=== PATIENT | male | born 1935 | race Hispanic/Latino ===

== ENCOUNTER 2017-11-19 06:23 | Day surgery (SDC) | payer OTHER ==
[~2017-11-19] VITALS: Ht 165.1 cm; Wt 70.0 kg
[~2017-11-19 06:23] MED LIST: ASPI-555 PO; CLOP75TA32 PO; FURO20TA4 PO; GLIM1TAB2 PO; LAMO25TA72 PO; METO-391 PO; PRAV20TA4 PO; SACU1TAB PO; TAMS0.4C32 PO; TRAM50TA4 PO; [UNRECOGNIZED DRUG - OTHER]
[2017-11-19] MEDS ORDERED: SODIUM CHLORIDE 0.9% 1000ML 1,000 ML IV ONE (06:47)
[2017-11-19 06:54] VITALS: BP 122/66
[2017-11-19] MEDS ORDERED: PROPOFOL 10 MG/ML 20ML VIAL IV ONE ×2 (08:29)
[2017-11-19 08:39] VITALS: BP 96/47
== END 2017-11-19 09:11 ==
LOC: ENDO 06:23 → DAH 06:23 → ENDO 09:11
PROVIDERS: ATTEND Internal Medicine Gastroenterology
DX: K22.2 Esophageal obstruction (principal); Z79.82 Long term (current) use of aspirin; Z79.899 Other long term (current) drug therapy; I25.810 Atherosclerosis of coronary artery bypass graft(s) without angina pectoris; I10 Essential (primary) hypertension; E78.4 Other hyperlipidemia; Z87.891 Personal history of nicotine dependence; Z95.1 Presence of aortocoronary bypass graft; Z86.73 Personal history of transient ischemic attack (TIA), and cerebral infarction without residual deficits; E11.9 Type 2 diabetes mellitus without complications; Z79.84 Long term (current) use of oral hypoglycemic drugs; K21.9 Gastro-esophageal reflux disease without esophagitis; G43.909 Migraine, unspecified, not intractable, without status migrainosus; Z90.49 Acquired absence of other specified parts of digestive tract
CPT/HCPCS: 43248; 82948 ×2; 93005; A4606; J2704 ×2; J7030

== ENCOUNTER 2017-12-31 12:37 | Inpatient (IN) | payer OTHER ==
[2017-12-31] VITALS (8 sets, daily range): BP systolic 99–110; BP diastolic 59–74
[~2017-12-31] VITALS: Ht 167.6 cm; Wt 69.5 kg
[~2017-12-31 12:37] MED LIST changes: +AMIODARONE HCL 50 MG/ML 3 ML VIAL IV ONE
[2017-12-31 12:56] LABS: BASOPHILS % (AUTO) 0.5 % (0.0-5.0); EOSINOPHILS % (AUTO) 1.2 % (0.0-8.0); HEMATOCRIT 35.2 % (42-54); LYMPHOCYTES % (AUTO) 33.6 % (21.0-51.0); MEAN CORPUSCULAR HEMOGLOBIN 27.3 pg (27.0-33.0); MEAN CORPUSCULAR HGB CONC 32.5 g/dL (32.0-36.0); MEAN CORPUSCULAR VOLUME 83.9 fL (79-99); NEUTROPHILS % (AUTO) 54.7 % (40.0-77.0); PLATELET COUNT (AUTO) 289 K/uL (130-400); RED CELL DISTRIBUTION WIDTH 14.4 % (11.0-15.5); WHITE BLOOD COUNT (AUTO) 14.6 K/uL (4.8-10.8)
[2017-12-31] MEDS ORDERED: ASPIRIN 325 MG TABLET ONE (12:59)
[2017-12-31 13:08] LABS: CREATININE 1.7 mg/dL (0.5-1.5); POTASSIUM 3.6 mmol/L (3.5-5.1)
[2017-12-31 13:12] LABS: INR 1.02 (0.85-1.15); PARTIAL THROMBOPLASTIN TIME 25.6 SEC (26.3-35.5); PROTHROMBIN TIME 10.7 SEC (9.6-11.6)
[2017-12-31 13:22] LABS: ALBUMIN 3.8 g/dL (3.5-5.0); BILIRUBIN,TOTAL 0.3 mg/dL (0.2-1.0); CREATINE KINASE MB 0.8 ng/mL (0.5-3.6); TOTAL PROTEIN, SERUM 7.4 g/dL (6.0-8.3)
[2017-12-31] MEDS ORDERED: NITROGLYCERIN 0.4 MG SL TAB SL ONE (13:37)
[2017-12-31] MEDS ORDERED: NITROGLYCERIN 50 MG/D5% WATER 1 BOT ONE (13:38)
[2017-12-31] MEDS ORDERED: SODIUM CHLORIDE 0.9% 1000ML 1,000 ML IV ONE (13:38)
[2017-12-31] MEDS ORDERED: AMIODARONE HCL 50 MG/ML 3 ML VIAL ONE (13:51)
[2017-12-31] MEDS ORDERED: HEPARIN SODIUM 5000UNIT/ML 1ML VIAL ONE (13:54)
[2017-12-31] MEDS ORDERED: AMIODARONE HCL 900 MG in DEXTROSE 5%-WATER 500 ML IV SCH (14:00)
[2017-12-31] MEDS ORDERED: ATROPINE SULFATE 0.1 MG/ML 10 ML SYG IVP ONE ×2 (14:02→17:31)
[2017-12-31] MEDS ORDERED: LIDOCAINE HCL 2% 20ML ONE (14:03)
[2017-12-31] MEDS ORDERED: IOPAMIDOL-370 100 ML VIAL IV ONE (14:03)
[2017-12-31] MEDS ORDERED: HEPARIN SODIUM 1000UNIT/ML 10ML VIAL ONE (14:03)
[2017-12-31] MEDS ORDERED: BIVALIRUDIN 250 MG/VIAL IV ONE (14:03)
[2017-12-31] MEDS ORDERED: DOPAMINE HCL 400 MG/D5%-WATER 250 ML IV ONE (14:03)
[2017-12-31] MEDS ORDERED: ISOVUE-370 50ML VIAL IV ONE (14:03)
[2017-12-31] MEDS ORDERED: PHENYLEPHRINE HCL 10 MG/ML 1ML VIAL IV ONE ×2 (14:20→14:27)
[2017-12-31] MEDS ORDERED: FENTANYL CITRATE PF 50 MCG/1 ML 2ML VIAL ONE (14:51)
[2017-12-31] MEDS ORDERED: EPTIFIBATIDE 75MG/100ML BOTTLE 0 ML IV ONE (15:05)
[2017-12-31] MEDS ORDERED: EPTIFIBATIDE 2 MG/ML 10 ML VIAL IVP ONE ×2 (15:05)
[2017-12-31] MEDS ORDERED: ADENOSINE 3 MG/ML 2ML VIAL IV ONE (15:11)
[2017-12-31] MEDS ORDERED: DEXTROSE 50%-WATER 50 ML DISP.SYRIN IV PRN (15:45)
[2017-12-31] MEDS ORDERED: GLUCAGON 1MG KIT 1 MG ML IM PRN (15:45)
[2017-12-31] MEDS ORDERED: TICAGRELOR 90 MG TABLET ONE (15:47)
[2017-12-31] MEDS ORDERED: PHENYLEPHRINE HCL 50 MG in SODIUM CHLORIDE 0.9% 250 ML IV SCH ×2 (16:00→16:30)
[2017-12-31 17:12] LABS: TROPONIN I 22.96 ng/mL (0.00-0.06)
[2017-12-31] MEDS: INSULIN HUMULIN R 100 UNIT/ML 3ML SQ SCH ×2 (17:16→21:00)
[2017-12-31] MEDS: TICAGRELOR 90 MG TABLET PO SCH (21:45)
[2018-01-01] VITALS (26 sets, daily range): BP systolic 91–132; BP diastolic 49–80
[2018-01-01] MEDS ORDERED: POTASSIUM CHLORIDE 10% ELIXIR 20 MEQ/15 ML UDCUP PO PRN (00:45)
[2018-01-01] MEDS ORDERED: POTASSIUM CHLORIDE 20MEQ/100ML 100 ML IV PRN (00:45)
[2018-01-01] MEDS ORDERED: LACTULOSE 20 GM/30 ML UDCUP PO PRN (00:45)
[2018-01-01 03:36] LABS: HEMATOCRIT 36.7 % (42-54); MEAN CORPUSCULAR HGB CONC 33.3 g/dL (32.0-36.0); MEAN CORPUSCULAR VOLUME 84.3 fL (79-99); PLATELET COUNT (AUTO) 272 K/uL (130-400); RED BLOOD CELL COUNT(AUTO) 4.36 MIL/uL (4.50-6.20); WHITE BLOOD COUNT (AUTO) 18.3 K/uL (4.8-10.8)
[2018-01-01 03:47] LABS: CREATININE 1.6 mg/dL (0.5-1.5)
[2018-01-01] MEDS: INSULIN HUMULIN R 100 UNIT/ML 3ML SQ SCH ×4 (07:30→21:00)
[2018-01-01] MEDS: ASPIRIN 81MG TAB.CHEW PO SCH (08:10)
[2018-01-01] MEDS: TICAGRELOR 90 MG TABLET PO SCH ×2 (08:10→20:50)
[2018-01-01] MEDS: FAMOTIDINE 20MG TAB 20 MG TAB PO SCH (08:10)
[2018-01-01] MEDS ORDERED: NON-FORMULARY MEDICATION 1 EACH (Glimepiride 1 MG) PO SCH (10:09)
[2018-01-01] MEDS: METOPROLOL TARTRATE 25 MG TAB PO SCH ×2 (10:12→21:00)
[2018-01-01] MEDS: FUROSEMIDE 20 MG TABLET PO SCH (12:01)
[2018-01-01] MEDS ORDERED: GLIMEPIRIDE 2 MG TABLET PO SCH (13:24)
[2018-01-01] MEDS: GLIMEPIRIDE 2 MG TABLET PO SCH (13:50)
[2018-01-01] MEDS ORDERED: FUROSEMIDE 10 MG/ML 4ML VIAL IV ONE (19:30)
[2018-01-01] MEDS ORDERED: SODIUM POLYSTYRENE SULFONATE 15 GM/60 ML ML RC SCH (20:15)
[2018-01-01] MEDS: TAMSULOSIN HCL 0.4 MG CAP.ER.24H PO SCH (20:50)
[2018-01-01] MEDS: ATORVASTATIN CALCIUM 10 MG TABLET PO SCH (20:50)
[2018-01-01] MEDS ORDERED: ATORVASTATIN CALCIUM 20 MG TABLET PO SCH (21:00)
[2018-01-02] VITALS (27 sets, daily range): BP systolic 81–105; BP diastolic 45–76
[2018-01-02 03:57] LABS: HEMATOCRIT 33.7 % (42-54); MEAN CORPUSCULAR HEMOGLOBIN 27.5 pg (27.0-33.0); MEAN CORPUSCULAR HGB CONC 33.3 g/dL (32.0-36.0); MEAN CORPUSCULAR VOLUME 82.4 fL (79-99); PLATELET COUNT (AUTO) 225 K/uL (130-400); RED BLOOD CELL COUNT(AUTO) 4.09 MIL/uL (4.50-6.20); RED CELL DISTRIBUTION WIDTH 15.2 % (11.0-15.5); WHITE BLOOD COUNT (AUTO) 15.6 K/uL (4.8-10.8)
[2018-01-02 04:09] LABS: CREATININE 1.6 mg/dL (0.5-1.5); POTASSIUM 3.3 mmol/L (3.5-5.1)
[2018-01-02] MEDS: INSULIN HUMULIN R 100 UNIT/ML 3ML SQ SCH ×4 (06:05→20:05)
[2018-01-02] MEDS: POTASSIUM CHLORIDE 20 MEQ ERTAB PO PRN ×2 (06:26→21:12)
[2018-01-02] MEDS: ASPIRIN 81MG TAB.CHEW PO SCH (08:23)
[2018-01-02] MEDS: FUROSEMIDE 20 MG TABLET PO SCH (08:23)
[2018-01-02] MEDS: FAMOTIDINE 20MG TAB 20 MG TAB PO SCH (08:23)
[2018-01-02] MEDS: METOPROLOL TARTRATE 25 MG TAB PO SCH ×2 (08:24→20:01)
[2018-01-02] MEDS: GLIMEPIRIDE 2 MG TABLET PO SCH (08:24)
[2018-01-02] MEDS: TICAGRELOR 90 MG TABLET PO SCH ×2 (08:34→20:01)
[2018-01-02] MEDS: VALSARTAN PO SCH ×2 (08:35→20:01)
[2018-01-02] MEDS: SACUBITRIL PO SCH ×2 (08:35→20:01)
[2018-01-02] MEDS: TAMSULOSIN HCL 0.4 MG CAP.ER.24H PO SCH (20:01)
[2018-01-02] MEDS: ATORVASTATIN CALCIUM 10 MG TABLET PO SCH (20:01)
[2018-01-02] MEDS ORDERED: FUROSEMIDE 10 MG/ML 4ML VIAL IV SCH (21:00)
[2018-01-02] MEDS: DOBUTAMINE 250MG/D5 250ML 250 ML IV SCH (21:10)
[2018-01-03] VITALS (27 sets, daily range): BP systolic 65–112; BP diastolic 34–67
[2018-01-03 03:48] LABS: MEAN CORPUSCULAR HEMOGLOBIN 28.3 pg (27.0-33.0); MEAN CORPUSCULAR HGB CONC 34.2 g/dL (32.0-36.0); MEAN CORPUSCULAR VOLUME 82.8 fL (79-99); PLATELET COUNT (AUTO) 206 K/uL (130-400); RED BLOOD CELL COUNT(AUTO) 3.99 MIL/uL (4.50-6.20); RED CELL DISTRIBUTION WIDTH 15.2 % (11.0-15.5)
[2018-01-03 03:55] LABS: CREATININE 1.6 mg/dL (0.5-1.5); POTASSIUM 3.5 mmol/L (3.5-5.1)
[2018-01-03] MEDS: INSULIN HUMULIN R 100 UNIT/ML 3ML SQ SCH ×4 (05:25→20:18)
[2018-01-03] MEDS: POTASSIUM CHLORIDE 20 MEQ ERTAB PO PRN ×2 (05:26→20:21)
[2018-01-03] MEDS: FUROSEMIDE 20 MG TABLET PO SCH (08:41)
[2018-01-03] MEDS: FAMOTIDINE 20MG TAB 20 MG TAB PO SCH (08:41)
[2018-01-03] MEDS: ASPIRIN 81MG TAB.CHEW PO SCH (08:41)
[2018-01-03] MEDS: METOPROLOL TARTRATE 25 MG TAB PO SCH ×2 (08:42→20:18)
[2018-01-03] MEDS: GLIMEPIRIDE 2 MG TABLET PO SCH (08:42)
[2018-01-03] MEDS: VALSARTAN PO SCH ×2 (08:43→20:18)
[2018-01-03] MEDS: SACUBITRIL PO SCH ×2 (08:43→20:18)
[2018-01-03] MEDS: TICAGRELOR 90 MG TABLET PO SCH ×2 (08:46→20:18)
[2018-01-03] MEDS: FUROSEMIDE 10 MG/ML 4ML VIAL IV SCH (16:27)
[2018-01-03] MEDS: ATORVASTATIN CALCIUM 10 MG TABLET PO SCH (20:18)
[2018-01-03] MEDS: TAMSULOSIN HCL 0.4 MG CAP.ER.24H PO SCH (20:18)
[2018-01-04] VITALS (20 sets, daily range): BP systolic 78–129; BP diastolic 39–68
[2018-01-04] MEDS: DOBUTAMINE 250MG/D5 250ML 250 ML IV SCH (00:05)
[2018-01-04 03:09] LABS: MEAN CORPUSCULAR HEMOGLOBIN 27.5 pg (27.0-33.0); MEAN CORPUSCULAR HGB CONC 33.6 g/dL (32.0-36.0); MEAN CORPUSCULAR VOLUME 81.9 fL (79-99); NUCLEATED RED BLOOD CELLS 0.1 % (0.0-0.19); PLATELET COUNT (AUTO) 213 K/uL (130-400); RED BLOOD CELL COUNT(AUTO) 3.66 MIL/uL (4.50-6.20); RED CELL DISTRIBUTION WIDTH 14.8 % (11.0-15.5); WHITE BLOOD COUNT (AUTO) 12.1 K/uL (4.8-10.8)
[2018-01-04 03:16] LABS: CREATININE 1.6 mg/dL (0.5-1.5); MAGNESIUM 2.1 mg/dL (1.80-2.40); POTASSIUM 3.3 mmol/L (3.5-5.1)
[2018-01-04 03:25] LABS: B-TYPE NATRIURETIC PEPTIDE 1010 pg/mL (0-100)
[2018-01-04] MEDS: FUROSEMIDE 10 MG/ML 4ML VIAL IV SCH (03:32)
[2018-01-04] MEDS: POTASSIUM CHLORIDE 20 MEQ ERTAB PO PRN ×6 (03:33→19:42)
[2018-01-04] MEDS: INSULIN HUMULIN R 100 UNIT/ML 3ML SQ SCH ×4 (05:29→19:48)
[2018-01-04] MEDS ORDERED: AMIODARONE HCL 150 MG in DEXTROSE 5%-WATER 100 ML IV SCH (08:15)
[2018-01-04] MEDS ORDERED: AMIODARONE HCL 900 MG in DEXTROSE 5%-WATER 500 ML IV SCH (08:15)
[2018-01-04] MEDS: FUROSEMIDE 10 MG/ML 2ML VIAL IV SCH ×2 (08:30→19:46)
[2018-01-04] MEDS: FAMOTIDINE 20MG TAB 20 MG TAB PO SCH (08:42)
[2018-01-04] MEDS: METOPROLOL TARTRATE 25 MG TAB PO SCH ×2 (08:42→19:43)
[2018-01-04] MEDS: TICAGRELOR 90 MG TABLET PO SCH ×2 (08:42→19:43)
[2018-01-04] MEDS: GLIMEPIRIDE 2 MG TABLET PO SCH (08:42)
[2018-01-04] MEDS: SACUBITRIL PO SCH ×2 (08:43→19:46)
[2018-01-04] MEDS: VALSARTAN PO SCH ×2 (08:43→19:46)
[2018-01-04] MEDS: ASPIRIN 81MG TAB.CHEW PO SCH (08:43)
[2018-01-04] MEDS: POTASSIUM CHLORIDE 10 MEQ/TAB.SA PO SCH ×2 (09:00→19:47)
[2018-01-04 15:11] LABS: MAGNESIUM 2.3 mg/dL (1.80-2.40); POTASSIUM 3.7 mmol/L (3.5-5.1)
[2018-01-04] MEDS: TAMSULOSIN HCL 0.4 MG CAP.ER.24H PO SCH (19:42)
[2018-01-04] MEDS: ATORVASTATIN CALCIUM 10 MG TABLET PO SCH (19:43)
[2018-01-05] VITALS (10 sets, daily range): BP systolic 73–105; BP diastolic 43–69
[2018-01-05 04:03] LABS: CREATININE 1.7 mg/dL (0.5-1.5)
[2018-01-05] MEDS: INSULIN HUMULIN R 100 UNIT/ML 3ML SQ SCH ×4 (05:41→21:00)
[2018-01-05] MEDS: GLIMEPIRIDE 2 MG TABLET PO SCH (08:00)
[2018-01-05] MEDS: ASPIRIN 81MG TAB.CHEW PO SCH (09:40)
[2018-01-05] MEDS: FAMOTIDINE 20MG TAB 20 MG TAB PO SCH (09:40)
[2018-01-05] MEDS: AMIODARONE HCL 200 MG TABLET PO SCH (09:40)
[2018-01-05] MEDS: FUROSEMIDE 20 MG TABLET PO SCH ×2 (09:42→16:10)
[2018-01-05] MEDS: TICAGRELOR 90 MG TABLET PO SCH ×2 (09:42→20:44)
[2018-01-05] MEDS: POTASSIUM CHLORIDE 10 MEQ/TAB.SA PO SCH ×2 (09:42→20:44)
[2018-01-05] MEDS: LOSARTAN 50 MG TABLET PO SCH (09:42)
[2018-01-05] MEDS: CARVEDILOL 6.25 MG TABLET PO SCH ×2 (09:43→21:00)
[2018-01-05] MEDS: SACUBITRIL PO SCH ×2 (15:33→21:00)
[2018-01-05] MEDS: VALSARTAN PO SCH ×2 (15:33→21:00)
[2018-01-05] MEDS: ATORVASTATIN CALCIUM 10 MG TABLET PO SCH (20:44)
[2018-01-05] MEDS: TAMSULOSIN HCL 0.4 MG CAP.ER.24H PO SCH (20:44)
[2018-01-06 03:23] LABS: HEMATOCRIT 30.7 % (42-54); MEAN CORPUSCULAR HEMOGLOBIN 28.4 pg (27.0-33.0); MEAN CORPUSCULAR HGB CONC 34.5 g/dL (32.0-36.0); MEAN CORPUSCULAR VOLUME 82.2 fL (79-99); PLATELET COUNT (AUTO) 254 K/uL (130-400); RED BLOOD CELL COUNT(AUTO) 3.74 MIL/uL (4.50-6.20); RED CELL DISTRIBUTION WIDTH 14.9 % (11.0-15.5); WHITE BLOOD COUNT (AUTO) 12.2 K/uL (4.8-10.8)
[2018-01-06 03:34] VITALS: BP 80/50
[2018-01-06 03:38] LABS: CREATININE 1.8 mg/dL (0.5-1.5); POTASSIUM 3.9 mmol/L (3.5-5.1)
[2018-01-06] MEDS: INSULIN HUMULIN R 100 UNIT/ML 3ML SQ SCH ×2 (05:59→11:30)
[2018-01-06 07:00] VITALS: BP 91/56
[2018-01-06] MEDS: GLIMEPIRIDE 2 MG TABLET PO SCH (08:29)
[2018-01-06] MEDS ORDERED: FURO20TA6 PO (08:55)
[2018-01-06] MEDS ORDERED: CARV6.2579 PO (08:55)
[2018-01-06] MEDS: SACUBITRIL PO SCH (09:00)
[2018-01-06] MEDS: VALSARTAN PO SCH (09:00)
[2018-01-06] MEDS ORDERED: TICA90TA PO (09:12)
[2018-01-06] MEDS ORDERED: AMIO200T5 PO (09:24)
[2018-01-06] MEDS: FUROSEMIDE 20 MG TABLET PO SCH (10:21)
[2018-01-06] MEDS: ASPIRIN 81MG TAB.CHEW PO SCH (10:21)
[2018-01-06] MEDS: LOSARTAN 50 MG TABLET PO SCH (10:21)
[2018-01-06] MEDS: FAMOTIDINE 20MG TAB 20 MG TAB PO SCH (10:22)
[2018-01-06] MEDS: POTASSIUM CHLORIDE 10 MEQ/TAB.SA PO SCH (10:22)
[2018-01-06] MEDS: TICAGRELOR 90 MG TABLET PO SCH (10:22)
[2018-01-06] MEDS: CARVEDILOL 6.25 MG TABLET PO SCH (10:22)
[2018-01-06] MEDS: AMIODARONE HCL 200 MG TABLET PO SCH (10:23)
[2018-01-06 11:00] VITALS: BP 80/51
== END 2018-01-06 14:43 | disposition home or self-care (01) | DRG 270 ==
LOC: EDH 12:37 → 2BH 12:38 → 2CH 19:00 → 2AH 01-05 15:09
PROVIDERS: ADMIT Internal Medicine; ATTEND Internal Medicine
PROC: 02703DZ Dilation of Coronary Artery, One Artery with Intraluminal Device, Percutaneous Approach (ICD-10-PCS; principal; 2017-12-31)
PROC: B2111ZZ Fluoroscopy of Multiple Coronary Arteries using Low Osmolar Contrast (ICD-10-PCS; 2017-12-31)
PROC: B2131ZZ Fluoroscopy of Multiple Coronary Artery Bypass Grafts using Low Osmolar Contrast (ICD-10-PCS; 2017-12-31)
PROC: 06C Lower Veins, Extirpation (ICD-10-PCS; 2017-12-31)
PROC: 4A023N7 Measurement of Cardiac Sampling and Pressure, Left Heart, Percutaneous Approach (ICD-10-PCS; 2017-12-31)
PROC: 5A09357 Assistance with Respiratory Ventilation, Less than 24 Consecutive Hours, Continuous Positive Airway Pressure (ICD-10-PCS; 2018-01-01)
PROC: 5A09357 Assistance with Respiratory Ventilation, Less than 24 Consecutive Hours, Continuous Positive Airway Pressure (ICD-10-PCS; 2018-01-02)
PROC: 5A09357 Assistance with Respiratory Ventilation, Less than 24 Consecutive Hours, Continuous Positive Airway Pressure (ICD-10-PCS; 2018-01-03)
DX: I21.19 ST elevation (STEMI) myocardial infarction involving other coronary artery of inferior wall (principal); R57.0 Cardiogenic shock; I50.43 Acute on chronic combined systolic (congestive) and diastolic (congestive) heart failure; I47.2 Ventricular tachycardia; N18.3 Chronic kidney disease, stage 3 (moderate); I49.01 Ventricular fibrillation; I13.0 Hypertensive heart and chronic kidney disease with heart failure and stage 1 through stage 4 chronic kidney disease, or unspecified chronic kidney disease; I47.1 Supraventricular tachycardia; E11.22 Type 2 diabetes mellitus with diabetic chronic kidney disease; E78.5 Hyperlipidemia, unspecified; I25.10 Atherosclerotic heart disease of native coronary artery without angina pectoris; I25.5 Ischemic cardiomyopathy; K21.9 Gastro-esophageal reflux disease without esophagitis; N40.0 Benign prostatic hyperplasia without lower urinary tract symptoms; I25.2 Old myocardial infarction; Z79.82 Long term (current) use of aspirin; Z79.84 Long term (current) use of oral hypoglycemic drugs; Z79.899 Other long term (current) drug therapy; Z86.73 Personal history of transient ischemic attack (TIA), and cerebral infarction without residual deficits; Z87.891 Personal history of nicotine dependence; Z95.810 Presence of automatic (implantable) cardiac defibrillator
CPT/HCPCS: 36415; 71045; 80048; 80053; 80061; 82550; 82553; 82948; 83605; 83735; 83874; 83880; 84132; 84484; 85025; 85027; 85610; 85730; 92941; 93005; 93306; 93455; 94660; 97039; 99156; 99157; 99291; A4344; C1725; C1769; C1887; C1894; C9606; J0153; J0282; J0461; J0583; J1250; J1265; J1327; J1644; J1815; J1940; J2370; J3010; J3490; J7030; J7060; Q9967

== ENCOUNTER 2018-01-10 00:17 | Emergency (ER) | payer OTHER ==
[~2018-01-10 00:17] MED LIST changes: +AMIO200T5 PO; -AMIODARONE HCL 50 MG/ML 3 ML VIAL IV ONE; +CARV6.2579 PO; -CLOP75TA32 PO; -FURO20TA4 PO; +FURO20TA6 PO; -METO-391 PO; +TICA90TA PO
[2018-01-10 00:55] LABS: BASOPHILS % (AUTO) 1.4 % (0.0-5.0); HEMATOCRIT 30.1 % (42-54); LYMPHOCYTES % (AUTO) 27.6 % (21.0-51.0); MEAN CORPUSCULAR HEMOGLOBIN 27.9 pg (27.0-33.0); MONOCYTES % (AUTO) 9.3 % (3.0-13.0); NEUTROPHILS % (AUTO) 58.7 % (40.0-77.0); NUCLEATED RED BLOOD CELLS 0.1 % (0.0-0.19); PLATELET COUNT (AUTO) 343 K/uL (130-400); RED BLOOD CELL COUNT(AUTO) 3.67 MIL/uL (4.50-6.20); RED CELL DISTRIBUTION WIDTH 15.5 % (11.0-15.5); WHITE BLOOD COUNT (AUTO) 9.6 K/uL (4.8-10.8)
[2018-01-10 01:01] LABS: CREATININE 1.8 mg/dL (0.5-1.5); POTASSIUM 3.5 mmol/L (3.5-5.1)
[2018-01-10 01:05] LABS: INR 1.03 (0.85-1.15); PARTIAL THROMBOPLASTIN TIME 30.1 SEC (26.3-35.5); PROTHROMBIN TIME 10.8 SEC (9.6-11.6)
[2018-01-10 01:12] LABS: B-TYPE NATRIURETIC PEPTIDE 1290 pg/mL (0-100)
[2018-01-10 01:14] LABS: ALBUMIN 2.8 g/dL (3.5-5.0); BILIRUBIN,TOTAL 0.3 mg/dL (0.2-1.0); CREATINE KINASE MB 0.9 ng/mL (0.5-3.6); TOTAL PROTEIN, SERUM 6.9 g/dL (6.0-8.3)
[2018-01-10] MEDS ORDERED: FUROSEMIDE 10 MG/ML 4ML VIAL ONE (02:31)
== END 2018-01-10 05:45 | disposition home or self-care (01) ==
LOC: EDH 00:17
DX: I11.0 Hypertensive heart disease with heart failure (principal); I50.43 Acute on chronic combined systolic (congestive) and diastolic (congestive) heart failure; I21.9 Acute myocardial infarction, unspecified; I25.10 Atherosclerotic heart disease of native coronary artery without angina pectoris; E11.9 Type 2 diabetes mellitus without complications; E78.5 Hyperlipidemia, unspecified; Z86.73 Personal history of transient ischemic attack (TIA), and cerebral infarction without residual deficits
CPT/HCPCS: 36415; 71045; 80053; 82550; 82553; 83880; 84484 ×2; 85025; 85610; 85730; 93005 ×2; 96374; 99285; J1940

== ENCOUNTER 2018-05-01 10:06 | Inpatient (IN) | payer OTHER ==
[~2018-05-01] VITALS: Ht 167.6 cm; Wt 60.6 kg
[~2018-05-01 10:06] MED LIST changes: -AMIO200T5 PO; +ATOR20TA65 PO; -FURO20TA6 PO; +FURO40TA5 PO; +POTA-9 PO; -PRAV20TA4 PO; +SPIR25TA PO; -TRAM50TA4 PO; -[UNRECOGNIZED DRUG - OTHER]
[2018-05-01 10:27] LABS: BASOPHILS % (AUTO) 0.5 % (0.0-5.0); EOSINOPHILS % (AUTO) 0.6 % (0.0-8.0); HEMATOCRIT 41.6 % (42-54); LYMPHOCYTES % (AUTO) 35.8 % (21.0-51.0); MEAN CORPUSCULAR HEMOGLOBIN 28.6 pg (27.0-33.0); MEAN CORPUSCULAR HGB CONC 32.3 g/dL (32.0-36.0); MEAN CORPUSCULAR VOLUME 88.6 fL (79-99); MONOCYTES % (AUTO) 6.8 % (3.0-13.0); NEUTROPHILS % (AUTO) 56.3 % (40.0-77.0); PLATELET COUNT (AUTO) 269 K/uL (130-400); RED BLOOD CELL COUNT(AUTO) 4.69 MIL/uL (4.50-6.20); RED CELL DISTRIBUTION WIDTH 16.9 % (11.0-15.5); WHITE BLOOD COUNT (AUTO) 13.4 K/uL (4.8-10.8)
[2018-05-01] MEDS ORDERED: ASPIRIN 325 MG TABLET ONE (10:31)
[2018-05-01 10:36] LABS: CREATININE 1.7 mg/dL (0.5-1.5); POTASSIUM 3.9 mmol/L (3.5-5.1)
[2018-05-01 10:43] LABS: ALBUMIN 3.8 g/dL (3.5-5.0); BILIRUBIN,TOTAL 0.8 mg/dL (0.2-1.0); INR 1.09 (0.85-1.15); PARTIAL THROMBOPLASTIN TIME 30.5 SEC (26.3-35.5); PROTHROMBIN TIME 11.4 SEC (9.6-11.6); TOTAL PROTEIN, SERUM 8.2 g/dL (6.0-8.3)
[2018-05-01 15:08] VITALS: BP 101/67
[2018-05-01] MEDS ORDERED: FURO40TA5 PO (15:23)
[2018-05-01 16:00] VITALS: BP 105/65
[2018-05-01 19:20] VITALS: BP 108/68
[2018-05-01 23:44] VITALS: BP 104/62
[2018-05-02 04:40] VITALS: BP 101/61
[2018-05-02 07:00] VITALS: BP 116/65
[2018-05-02 11:00] VITALS: BP 114/69
[2018-05-02 13:31] LABS: TROPONIN I 0.13 ng/mL (0.00-0.06)
[2018-05-02 16:00] VITALS: BP 110/69
[2018-05-02] MEDS: INSULIN HUMULIN R 100 UNIT/ML 3ML SQ SCH ×2 (16:30→20:56)
[2018-05-02 19:30] VITALS: BP 105/58
[2018-05-02] MEDS: TICAGRELOR 90 MG TABLET PO SCH (20:59)
[2018-05-02] MEDS: FUROSEMIDE 40 MG TABLET PO SCH (20:59)
[2018-05-02] MEDS: POTASSIUM CHLORIDE 20 MEQ ERTAB PO SCH (20:59)
[2018-05-02] MEDS: **HM** ENTRESTO 24-26MG PO SCH (21:01)
[2018-05-02 23:45] VITALS: BP 106/60
[2018-05-03] VITALS (7 sets, daily range): BP systolic 80–105; BP diastolic 55–63
[2018-05-03 03:37] LABS: CREATININE 1.4 mg/dL (0.5-1.5); POTASSIUM 3.2 mmol/L (3.5-5.1)
[2018-05-03] MEDS: INSULIN HUMULIN R 100 UNIT/ML 3ML SQ SCH ×4 (06:27→21:00)
[2018-05-03] MEDS: POTASSIUM CHLORIDE 20 MEQ ERTAB PO SCH ×2 (08:53→21:52)
[2018-05-03] MEDS: ATORVASTATIN CALCIUM 20 MG TABLET PO SCH (08:53)
[2018-05-03] MEDS: ASPIRIN 81MG TAB.CHEW PO SCH (08:53)
[2018-05-03] MEDS: FUROSEMIDE 40 MG TABLET PO SCH (08:54)
[2018-05-03] MEDS: SPIRONOLACTONE 25 MG TAB PO SCH (08:54)
[2018-05-03] MEDS: TICAGRELOR 90 MG TABLET PO SCH ×2 (09:50→21:51)
[2018-05-03] MEDS ORDERED: FUROSEMIDE 20 MG TABLET PO SCH (10:00)
[2018-05-03] MEDS ORDERED: LIDOCAINE HCL-MPF 1% 2ML VIAL IVP PRN ×2 (10:15→13:45)
[2018-05-03] MEDS ORDERED: POTASSIUM CHLORIDE 20 MEQ ERTAB PO PRN ×2 (10:15→13:45)
[2018-05-03] MEDS ORDERED: POTASSIUM CHLORIDE 20MEQ/100ML 100 ML IV PRN ×2 (10:15→13:45)
[2018-05-03] MEDS: **HM** ENTRESTO 24-26MG PO SCH (10:16)
[2018-05-03] MEDS ORDERED: PHARMACY COMMUNICATION MISC SCH ×2 (11:15→18:30)
[2018-05-03] MEDS: TAMSULOSIN HCL 0.4 MG CAP.ER.24H PO SCH (11:29)
[2018-05-03] MEDS: POTASSIUM CHLORIDE 10% ELIXIR 20 MEQ/15 ML UDCUP PO PRN ×2 (11:30→13:44)
[2018-05-03] MEDS ORDERED: POTASSIUM CHLORIDE 10% ELIXIR 20 MEQ/15 ML UDCUP PO PRN (13:45)
[2018-05-03] MEDS ORDERED: MAGNESIUM 2GM PREMIX 50ML 50 ML IV PRN (13:45)
[2018-05-03] MEDS ORDERED: AMIODARONE HCL 150 MG in DEXTROSE 5%-WATER 100 ML IV SCH (14:15)
[2018-05-03] MEDS ORDERED: AMIODARONE HCL 900 MG in DEXTROSE 5%-WATER 500 ML IV SCH (14:15)
[2018-05-03 14:24] LABS: MAGNESIUM 2.2 mg/dL (1.80-2.40); THYROID STIMULATING HORMONE 2.19 uIU/mL (0.36-3.74)
[2018-05-03] MEDS ORDERED: FUROSEMIDE 40 MG TABLET PO SCH (17:00)
[2018-05-03] MEDS: FUROSEMIDE 20 MG TABLET PO SCH (17:02)
[2018-05-03] MEDS: CARVEDILOL 3.125 MG TABLET PO SCH (21:00)
[2018-05-03] MEDS: DOXYCYCLINE HYCLATE 100 MG TABLET PO SCH (21:51)
[2018-05-03] MEDS: OSELTAMIVIR PHOSPHATE 75 MG CAP PO SCH (21:52)
[2018-05-04 03:00] VITALS: BP 93/65
[2018-05-04 03:34] LABS: HEMATOCRIT 38.9 % (42-54); MEAN CORPUSCULAR HEMOGLOBIN 30.1 pg (27.0-33.0); MEAN CORPUSCULAR HGB CONC 33.9 g/dL (32.0-36.0); MEAN CORPUSCULAR VOLUME 88.7 fL (79-99); PLATELET COUNT (AUTO) 257 K/uL (130-400); RED BLOOD CELL COUNT(AUTO) 4.39 MIL/uL (4.50-6.20); WHITE BLOOD COUNT (AUTO) 12.5 K/uL (4.8-10.8)
[2018-05-04 04:07] LABS: ALBUMIN 3.4 g/dL (3.5-5.0); BILIRUBIN,TOTAL 0.7 mg/dL (0.2-1.0); CREATININE 1.6 mg/dL (0.5-1.5); MAGNESIUM 2.1 mg/dL (1.80-2.40); PHOSPHORUS 3.8 mg/dL (2.5-4.9); POTASSIUM 3.9 mmol/L (3.5-5.1); TOTAL PROTEIN, SERUM 7.3 g/dL (6.0-8.3); TROPONIN I 0.09 ng/mL (0.00-0.06)
[2018-05-04] MEDS: INSULIN HUMULIN R 100 UNIT/ML 3ML SQ SCH ×3 (05:33→16:30)
[2018-05-04 07:00] VITALS: BP 109/67
[2018-05-04] MEDS ORDERED: ENOXAPARIN SODIUM 40 MG/0.4 ML SYRINGE SQ SCH (09:00)
[2018-05-04] MEDS ORDERED: ISOSORBIDE MONO 30MG TAB SR PO SCH (09:00)
[2018-05-04] MEDS: OSELTAMIVIR PHOSPHATE 75 MG CAP PO SCH (09:16)
[2018-05-04] MEDS: SPIRONOLACTONE 25 MG TAB PO SCH (09:16)
[2018-05-04] MEDS: CARVEDILOL 3.125 MG TABLET PO SCH (09:17)
[2018-05-04] MEDS: FUROSEMIDE 20 MG TABLET PO SCH ×2 (09:17→15:01)
[2018-05-04] MEDS: ATORVASTATIN CALCIUM 20 MG TABLET PO SCH (09:17)
[2018-05-04] MEDS: TICAGRELOR 90 MG TABLET PO SCH (09:17)
[2018-05-04] MEDS: POTASSIUM CHLORIDE 20 MEQ ERTAB PO SCH (09:18)
[2018-05-04] MEDS: ASPIRIN 81MG TAB.CHEW PO SCH (09:18)
[2018-05-04] MEDS: DOXYCYCLINE HYCLATE 100 MG TABLET PO SCH (09:18)
[2018-05-04] MEDS ORDERED: ISOS30TA6 PO (09:27)
[2018-05-04] MEDS ORDERED: FURO40TA5 PO (09:27)
[2018-05-04] MEDS ORDERED: AMIO200T5 PO (09:27)
[2018-05-04 11:00] VITALS: BP 101/76
[2018-05-04] MEDS: TAMSULOSIN HCL 0.4 MG CAP.ER.24H PO SCH (11:59)
[2018-05-04] MEDS ORDERED: AMIODARONE HCL 200 MG TABLET PO SCH (15:00)
[2018-05-04 15:05] VITALS: BP 92/57
[2018-05-04] MEDS ORDERED: **HM** ENTRESTO 24-26MG PO SCH (21:00)
== END 2018-05-04 15:35 | disposition home or self-care (01) | DRG 309 ==
LOC: EDH 10:06 → EDHIP 13:20 → OBSVTOIN 13:20 → 2DH 15:02
PROVIDERS: ADMIT Internal Medicine Pulmonary Disease; ATTEND Internal Medicine Pulmonary Disease
PROC: 4B02XTZ Measurement of Cardiac Defibrillator, External Approach (ICD-10-PCS; principal; 2018-05-01)
DX: I47.2 Ventricular tachycardia (principal); I50.22 Chronic systolic (congestive) heart failure; I13.0 Hypertensive heart and chronic kidney disease with heart failure and stage 1 through stage 4 chronic kidney disease, or unspecified chronic kidney disease; B34.9 Viral infection, unspecified; E11.22 Type 2 diabetes mellitus with diabetic chronic kidney disease; E78.5 Hyperlipidemia, unspecified; E87.6 Hypokalemia; G40.909 Epilepsy, unspecified, not intractable, without status epilepticus; I25.10 Atherosclerotic heart disease of native coronary artery without angina pectoris; I25.2 Old myocardial infarction; I25.5 Ischemic cardiomyopathy; I34.0 Nonrheumatic mitral (valve) insufficiency; J84.10 Pulmonary fibrosis, unspecified; N18.3 Chronic kidney disease, stage 3 (moderate); Z86.718 Personal history of other venous thrombosis and embolism; Z86.73 Personal history of transient ischemic attack (TIA), and cerebral infarction without residual deficits; Z87.891 Personal history of nicotine dependence; Z95.5 Presence of coronary angioplasty implant and graft; Z95.810 Presence of automatic (implantable) cardiac defibrillator
CPT/HCPCS: 36415; 71045; 71250; 80048; 80053; 82550; 82948; 83605; 83735; 83874; 83880; 84100; 84443; 84484; 85025; 85027; 85610; 85730; 93005; J0282; J1650; J7060; Q2038

== ENCOUNTER 2018-10-04 15:18 | Emergency (ER) | payer OTHER ==
[~2018-10-04 15:18] MED LIST changes: +AMIO200T5 PO; -CARV6.2579 PO; +FURO-151 PO; -FURO40TA5 PO; +ISOS60TA4 PO; -POTA-9 PO; +POTA20PA32 PO; -SPIR25TA PO; +SPIR50TA5 PO; +TRAM50TA4 PO
[2018-10-04 15:58] LABS: BASOPHILS % (AUTO) 0.1 % (0.0-5.0); EOSINOPHILS % (AUTO) 0.1 % (0.0-8.0); HEMATOCRIT 40.6 % (42-54); MEAN CORPUSCULAR HEMOGLOBIN 31.4 pg (27.0-33.0); MEAN CORPUSCULAR HGB CONC 33.5 g/dL (32.0-36.0); MEAN CORPUSCULAR VOLUME 93.7 fL (79-99); MONOCYTES % (AUTO) 5.4 % (3.0-13.0); NEUTROPHILS % (AUTO) 85.4 % (40.0-77.0); PLATELET COUNT (AUTO) 329 K/uL (130-400); RED BLOOD CELL COUNT(AUTO) 4.33 MIL/uL (4.50-6.20); RED CELL DISTRIBUTION WIDTH 15.1 % (11.0-15.5); WHITE BLOOD COUNT (AUTO) 15.7 K/uL (4.8-10.8)
[2018-10-04 16:48] LABS: POTASSIUM 4.4 mmol/L (3.5-5.1)
[2018-10-04 16:54] LABS: BILIRUBIN,TOTAL 0.4 mg/dL (0.2-1.0); TOTAL PROTEIN, SERUM 7.2 g/dL (6.0-8.3)
[2018-10-04] MEDS ORDERED: SODIUM CHLORIDE 0.9% 1000ML 1,000 ML IV ONE (17:24)
== END 2018-10-04 19:51 | disposition home or self-care (01) ==
LOC: EDH 15:18
DX: R11.2 Nausea with vomiting, unspecified (principal); I12.9 Hypertensive chronic kidney disease with stage 1 through stage 4 chronic kidney disease, or unspecified chronic kidney disease; E11.22 Type 2 diabetes mellitus with diabetic chronic kidney disease; N18.9 Chronic kidney disease, unspecified; E78.5 Hyperlipidemia, unspecified; I25.10 Atherosclerotic heart disease of native coronary artery without angina pectoris; F41.9 Anxiety disorder, unspecified; I25.2 Old myocardial infarction; Z86.73 Personal history of transient ischemic attack (TIA), and cerebral infarction without residual deficits; Z95.810 Presence of automatic (implantable) cardiac defibrillator
CPT/HCPCS: 36415; 80053; 83690; 84484; 85025; 93005; 96360; 96361; 99284; J7030